=== PATIENT | male | born 1960 | race African-American/Black ===

== ENCOUNTER 2016-07-23 12:41 | Inpatient (IN) | payer OTHER ==
[2016-07-23 12:54] VITALS: BMI 22.4
--- NOTE | 2016-07-23 15:35 | HP ---
CIWA Score - CIWA Score Nausea/Vomitin Muscle Tremors: 3 Anxiety: 3 Agitation: 3 Paroxysmal Sweats: 2 Orientation: 0-Oriented Tacttile Disturbances: 2-Mild Itch/Numbness/Burn Auditory Disturbances: 2-Mild Harshness/Frighten Visual Disturbances: 2-Mild Sensitivity Headache: 2-Mild CIWA-Ar Total Score: 22 Admission ROS BHS - HPI Chief Complaint: i need help to stop drinking alcohol and cocaine Allergies/Adverse Reactions: Allergies Allergy/AdvReac Type Severity Reaction Status Date / Time No Known Allergies Allergy Verified 07/23/16 15:24 History of Present Illness: this 56 years old male with alcohol and ccocaine dependence,withdrawal symptom, last detox 2011 [facility] syncope alcohol related htn nicotine dependence longest period of sobriety 1 year positive ppd Exam Limitations: No Limitations - Ebola screening Have you traveled outside of the country in the last 21 days: No Have you had contact with anyone from an Ebola affected area: No Have you been sick,other than usual withdrawal symptoms: No - Review of Systems Constitutional: Loss of Appetite, Malaise, Night Sweats, Changes in sleep, Weakness, Unintentional Wgt. Loss EENT: reports: Nose Congestion Respiratory: reports: No Symptoms reported Cardiac: reports: Palpitations GI: reports: Diarrhea, Nausea, Vomiting, Abdominal cramping : reports: No Symptoms Reported Musculoskeletal: reports: Back Pain, Muscle Pain Neuro: reports: Headache, Tremors Endocrine: reports: No Symptoms Reported Hematology: reports: No Symptoms Reported Psychiatric: reports: No Sypmtoms Reported Patient History - Patient Medical History Hx Anemia: No Hx Asthma: No Hx Chronic Obstructive Pulmonary Disease (COPD): No Hx Cancer: No Hx Cardiac Disorders: No Hx Hypertension: Yes (on meds.) Hx Hypercholesterolemia: No Hx Pacemaker: No HX Cerebrovascular Accident: No Hx Seizures: No Hx Dementia: No Hx Diabetes: No Hx Gastrointestinal Disorders: No Hx Liver Disease: No Hx Genitourinary Disorders: No Hx Sexually Transmitted Disorders: No Hx Renal Disease (ESRD): No Hx Thyroid Disease: No Hx Human Immunodeficiency Virus (HIV): No (06/28) Hx Hepatitis C: No Hx Depression: No Hx Suicide Attempt: No Hx Bipolar Disorder: No Hx Schizophrenia: No Other Medical History: no suicidal,no homicidal - Patient Surgical History Past Surgical History: Yes Hx Abdominal Surgery: Yes (exploratory sx 1988) - PPD History Previous Implant?: Yes Documented Results: Positive w/o proof Implanted On Prior [facility] Admission?: No PPD to be Administered?: No - Smoking Cessation Smoking history: Current every day smoker Have you smoked in the past 12 months: Yes Aproximately how many cigarettes per day: 20 Hx Chewing Tobacco Use: No Initiated information on smoking cessation: Yes 'Breaking Loose' booklet given: 07/23/16 - Substance & Tx. History Hx Alcohol Use: Yes Hx Substance Use: Yes Substance Use Type: Alcohol, Cocaine Hx Substance Use Treatment: Yes (2011 [facility]) - Substances Abused Alcohol Route: Oral Frequency: Daily Amount used: 2 qts vodka Age of first use: 13 Date of Last Use: 07/22/16 Cocaine Route: Inhalation Frequency: Daily Amount used: 1-2 grams Age of first use: 16 Date of Last Use: 07/22/16 Family Disease History - Family Disease History Family Disease History: Other: Father (alcohol,) Admission Physical Exam S - Vital Signs Vital Signs: Vital Signs - 24 hr 07/23/16 12:52 Temperature 97.2 F L Pulse Rate 80 Respiratory 18 Rate Blood Pressure 153/85 - Physical General Appearance: Yes: Moderate Distress, Tremorous, Irritable, Sweating, Anxious HEENTM: Yes: Normal ENT Inspection, GERRY, Pharynx Normal Respiratory: Yes: Lungs Clear, Normal Breath Sounds, No Respiratory Distress Neck: Yes: Within Normal Limits, Supple, Trachea in good position Breast: Yes: Within Normal Limits Cardiology: Yes: Within Normal Limits, Regular Rhythm, Regular Rate, S1, S2 Abdominal: Yes: Within Normal Limits, Normal Bowel Sounds, Non Tender, Flat, Soft Genitourinary: Yes: Within Normal Limits Back: Yes: Muscle Spasm Musculoskeletal: Yes: Within Normal Limits, full range of Motion, Back pain Extremities: Yes: Within Normal Limits, Normal Range of Motion, Tremors Neurological: Yes: medical billing service II-XII NML intact, Fully Oriented, Alert, Motor Strength 5/5 Integumentary: Yes: Dry Lymphatic: Yes: Within Normal Limits - Diagnostic (1) Alcohol dependence with uncomplicated withdrawal Current Visit: Yes Status: Acute (2) Cocaine dependence Current Visit: Yes Status: Acute (3) Syncope Current Visit: Yes Status: Acute (4) Hypertension Current Visit: Yes Status: Acute (5) Positive PPD, treated Current Visit: Yes Status: Acute (6) Weight loss Current Visit: Yes Status: Acute (7) Nicotine dependence Current Visit: Yes Status: Acute Cleared for Admission S - Detox or Rehab [facility] Level of Care: Medically Managed Detox Regimen/Protocol: Librium [facility] Breath Alcohol Content Breath Alcohol Content: 0 Urine Drug Screen - Results Drug Screen Negative: No Urine Drug Screen Results: USHA-Cocaine
[2016-07-23] MEDS ORDERED: MAGNESIUM CITRATE 300 ML BOTTLE PO PRN (15:42)
[2016-07-23] MEDS ORDERED: MENTHOL/PHENOL 1 EACH UD MM PRN (15:42)
[2016-07-23] MEDS ORDERED: MAG HYDROX/AL HYDROX/SIMETH 30 ML UNIT-DOSE CUP PO PRN (15:42)
[2016-07-23] MEDS ORDERED: MAGNESIUM HYDROX 2400MG/30ML ORAL SUSPENSION 30 ML CUP PO PRN (15:42)
[2016-07-23] MEDS ORDERED: P-EPHED 60MG/TRIPROLIDI 2.5MG TABLET PO PRN (15:42)
[2016-07-23] MEDS ORDERED: diphenhydrAMINE HCL 50 MG CAPSULE PO PRN (15:42)
[2016-07-23] MEDS ORDERED: chlordiazePOXIDE HCL 25 MG CAPSULE PO PRN (15:42)
[2016-07-23] MEDS ORDERED: ACETAMINOPHEN 325 MG TABLET (FP) PO PRN (15:42)
[2016-07-23] MEDS ORDERED: LOPERAMIDE HCL 2 MG CAPSULE PO PRN (15:42)
[2016-07-23] MEDS ORDERED: guaiFENesin/D-METHORPHAN HB 10 ML UNIT-DOSE CUPS PO PRN (15:42)
[2016-07-23] MEDS ORDERED: IBUPROFEN 400 MG TABLET (FP) PO PRN (15:42)
[2016-07-23] MEDS ORDERED: hydrOXYzine PAMOATE 50 MG CAPSULE (FP) PO PRN (15:42)
[2016-07-23] MEDS ORDERED: chlordiazePOXIDE HCL 25 MG CAPSULE PO ONE (17:00)
[2016-07-23] MEDS: HYDROCHLOROTHIAZIDE 12.5 MG CAPSULE (FP) PO SCH (17:48)
[2016-07-23] MEDS: chlordiazePOXIDE HCL 25 MG CAPSULE PO SCH ×2 (17:48→23:18)
[2016-07-23] MEDS: NICOTINE 21 MG/24 HOURS TOPICAL PATCH TD SCH (18:24)
[2016-07-23 18:48] LABS: HIV 1 & 2 AB NEGATIVE; HIV 1 AGp24 NEGATIVE
[2016-07-23] MEDS: THIAMINE HCL 100 MG TABLET (FP) PO SCH (22:32)
[2016-07-23 23:05] LABS: URINE APPEARANCE CLEAR; URINE BILIRUBIN NEGATIVE (NEGATIVE); URINE BLOOD NEGATIVE (NEGATIVE); URINE COLOR YELLOW; URINE GLUCOSE (UA) NEGATIVE (NEGATIVE); URINE KETONE NEGATIVE (NEGATIVE); URINE LEUK ESTERASE NEGATIVE (NEGATIVE); URINE NITRITE NEGATIVE (NEGATIVE); URINE PROTEIN NEGATIVE (NEGATIVE); URINE UROBILINOGEN NEGATIVE E.U./dl (0.2-1.0)
[2016-07-24] MEDS: chlordiazePOXIDE HCL 25 MG CAPSULE PO SCH ×4 (05:21→23:02)
--- NOTE | 2016-07-24 09:34 | PN ---
S CIWA - CIWA Score Nausea/Vomitin Muscle Tremors: 3 Anxiety: 3 Agitation: 3 Paroxysmal Sweats: 1-Minimal Palms Moist Orientation: 0-Oriented Tacttile Disturbances: 1-Very Mild Itch/Numbness Auditory Disturbances: 1-Very Mild Visual Disturbances: 1-Very Mild Sensitivity Headache: 2-Mild CIWA-Ar Total Score: 18 BHS Progress Note (SOAP) Subjective: ALERT,IRRITABLE,ANXIOUS,INTERRUPTED SLEEP,TREMOR Objective: 07/24/16 09:30 Vital Signs Temperature 97.2 F L 07/24/16 06:24 Pulse Rate 64 07/24/16 06:24 Respiratory Rate 16 07/24/16 06:24 Blood Pressure 132/85 07/24/16 06:24 O2 Sat by Pulse Oximetry (%) EKG NSR,INVERTED T IN 2,3,AVF,LVH NO CHEST PAIN,NO SOB,NO DIZZINESS Laboratory Last Values Urine Color Yellow 07/23/16 21:39 Urine Appearance Clear 07/23/16 21:39 Urine pH 5.0 (5.0-8.0) 07/23/16 21:39 Ur Specific [place] 1.026 (1.001-1.035) 07/23/16 21:39 Urine Protein Negative (NEGATIVE) 07/23/16 21:39 Urine Glucose (UA) Negative (NEGATIVE) 07/23/16 21:39 Urine Ketones Negative (NEGATIVE) 07/23/16 21:39 Urine Blood Negative (NEGATIVE) 07/23/16 21:39 Urine Nitrite Negative (NEGATIVE) 07/23/16 21:39 Urine Bilirubin Negative (NEGATIVE) 07/23/16 21:39 Urine Urobilinogen Negative E.U./dl (0.2-1.0) 07/23/16 21:39 Ur Leukocyte Esterase Negative (NEGATIVE) 07/23/16 21:39 HIV 1&2 Antibody Screen Negative 07/23/16 15:00 HIV P24 Antigen Negative 07/23/16 15:00 LABS PENDING 07/24/16 09:33 07/24/16 09:33 Assessment: 07/24/16 09:32 07/24/16 09:33 07/24/16 09:33 WITHDRAWAL SYMPTOM 07/24/16 09:34 Plan: CONTINUE DETOX
[2016-07-24 10:08] LABS: MCH 28.5 pg (25.7-33.7); MCHC 32.9 g/dl (32.0-35.9); MEAN CELL VOLUME 86.7 fl (80-96); MEAN PLT VOLUME 10.2 fl (7.5-11.1); PLATELET COUNT 178 K/MM3 (134-434); RDW 14.8 % (11.9-15.9); WHITE BLOOD COUNT 9.7 K/mm3 (4.0-10.0)
[2016-07-24] MEDS: PRENATAL VITAMINS W/ FOLIC ACID TABLET (FP) PO SCH (10:12)
[2016-07-24] MEDS: HYDROCHLOROTHIAZIDE 12.5 MG CAPSULE (FP) PO SCH (10:12)
[2016-07-24] MEDS: NICOTINE 21 MG/24 HOURS TOPICAL PATCH TD SCH (10:13)
[2016-07-24] MEDS: NICOTINE POLACRILEX 2 MG GUM BC PRN (10:15)
[2016-07-24 10:37] LABS: ALBUMIN 3.8 g/dl (3.4-5.0); ALK PHOS 113 U/L (45-117); ANION GAP 9 (8-16); BILIRUBIN,TOTAL 0.3 mg/dL (0.2-1.0); CALCIUM 9.1 mg/dL (8.5-10.1); CO2 27 mmol/L (21-32); COCKROFT - GAULT 84.18; CREATININE 1.1 mg/dL (0.7-1.3); GLUCOSE,RANDOM 85 mg/dL (74-106); SGOT/AST 22 U/L (15-37); SGPT/ALT 27 U/L (12-78); TOT PROT 6.9 g/dl (6.4-8.2)
[2016-07-24] MEDS: THIAMINE HCL 100 MG TABLET (FP) PO SCH (23:02)
[2016-07-25] MEDS: chlordiazePOXIDE HCL 25 MG CAPSULE PO SCH ×2 (05:33→10:20)
--- NOTE | 2016-07-25 08:47 | PN ---
[facility] CIWA - CIWA Score Nausea/Vomitin Muscle Tremors: 3 Anxiety: 3 Agitation: 2 Paroxysmal Sweats: 1-Minimal Palms Moist Orientation: 0-Oriented Tacttile Disturbances: 1-Very Mild Itch/Numbness Auditory Disturbances: 1-Very Mild Visual Disturbances: 1-Very Mild Sensitivity Headache: 2-Mild CIWA-Ar Total Score: 17 BHS Progress Note (SOAP) Subjective: alert,irritable,anxious,interrupted sleep,pain in the body Objective: 07/25/16 08:46 Vital Signs Temperature 97.2 F L 07/25/16 06:31 Pulse Rate 66 07/25/16 06:31 Respiratory Rate 16 07/25/16 06:31 Blood Pressure 132/89 07/25/16 06:31 O2 Sat by Pulse Oximetry (%) Laboratory Last Values WBC 9.7 K/mm3 (4.0-10.0) 07/24/16 06:20 RBC 4.34 M/mm3 (4.00-5.60) 07/24/16 06:20 Hgb 12.4 GM/dL (11.7-16.9) 07/24/16 06:20 Hct 37.6 % (35.4-49) 07/24/16 06:20 MCV 86.7 fl (80-96) 07/24/16 06:20 MCHC 32.9 g/dl (32.0-35.9) 07/24/16 06:20 RDW 14.8 % (11.9-15.9) 07/24/16 06:20 Plt Count 178 K/MM3 (134-434) 07/24/16 06:20 MPV 10.2 fl (7.5-11.1) 07/24/16 06:20 Sodium 146 mmol/L (136-145) H 07/24/16 06:20 Potassium 3.9 mmol/L (3.5-5.1) 07/24/16 06:20 Chloride 110 mmol/L (98-107) H 07/24/16 06:20 Carbon Dioxide 27 mmol/L (21-32) 07/24/16 06:20 Anion Gap 9 (8-16) 07/24/16 06:20 BUN 15 mg/dL (7-18) 07/24/16 06:20 Creatinine 1.1 mg/dL (0.7-1.3) 07/24/16 06:20 Creat Clearance w eGFR > 60 (>60) 07/24/16 06:20 Random Glucose 85 mg/dL (74-106) 07/24/16 06:20 Calcium 9.1 mg/dL (8.5-10.1) 07/24/16 06:20 Total Bilirubin 0.3 mg/dL (0.2-1.0) 07/24/16 06:20 AST 22 U/L (15-37) 07/24/16 06:20 ALT 27 U/L (12-78) 07/24/16 06:20 Alkaline Phosphatase 113 U/L (45-117) 07/24/16 06:20 Total Protein 6.9 g/dl (6.4-8.2) 07/24/16 06:20 Albumin 3.8 g/dl (3.4-5.0) 07/24/16 06:20 Urine Color Yellow 07/23/16 21:39 Urine Appearance Clear 07/23/16 21:39 Urine pH 5.0 (5.0-8.0) 07/23/16 21:39 Ur Specific [place] 1.026 (1.001-1.035) 07/23/16 21:39 Urine Protein Negative (NEGATIVE) 07/23/16 21:39 Urine Glucose (UA) Negative (NEGATIVE) 07/23/16 21:39 Urine Ketones Negative (NEGATIVE) 07/23/16 21:39 Urine Blood Negative (NEGATIVE) 07/23/16 21:39 Urine Nitrite Negative (NEGATIVE) 07/23/16 21:39 Urine Bilirubin Negative (NEGATIVE) 07/23/16 21:39 Urine Urobilinogen Negative E.U./dl (0.2-1.0) 07/23/16 21:39 Ur Leukocyte Esterase Negative (NEGATIVE) 07/23/16 21:39 RPR Titer Nonreactive (NONREACTIVE) 07/24/16 06:20 HIV 1&2 Antibody Screen Negative 07/23/16 15:00 HIV P24 Antigen Negative 07/23/16 15:00 Assessment: 07/25/16 08:46 withdrawal symptom Plan: continue detox
[2016-07-25] MEDS: PRENATAL VITAMINS W/ FOLIC ACID TABLET (FP) PO SCH (10:20)
[2016-07-25] MEDS: HYDROCHLOROTHIAZIDE 12.5 MG CAPSULE (FP) PO SCH (10:20)
[2016-07-25] MEDS: NICOTINE POLACRILEX 2 MG GUM BC PRN (10:20)
[2016-07-25] MEDS: NICOTINE 21 MG/24 HOURS TOPICAL PATCH TD SCH (10:21)
--- NOTE | 2016-07-25 11:50 | EKG ---
Test Reason : Blood Pressure : / mmHG Vent. Rate : 080 BPM Atrial Rate : 080 BPM P-R Int : 136 ms QRS Dur : 096 ms QT Int : 390 ms P-R-T Axes : 061 049 -51 degrees QTc Int : 449 ms NORMAL SINUS RHYTHM POSSIBLE LEFT ATRIAL ENLARGEMENT LEFT VENTRICULAR HYPERTROPHY CANNOT RULE OUT SEPTAL INFARCT , AGE UNDETERMINED T WAVE ABNORMALITY, CONSIDER INFERIOR ISCHEMIA ABNORMAL ECG NO PREVIOUS ECGS AVAILABLE Confirmed by MELCHOR CARBAJAL, MARGARITA ([id number]) on 07/25/2016 11:49:43 AM Referred By: Confirmed By:MARGARITA ROCHE MD
[2016-07-25] MEDS: chlordiazePOXIDE 5 MG CAPSULE PO SCH ×2 (17:24→22:09)
[2016-07-25] MEDS: THIAMINE HCL 100 MG TABLET (FP) PO SCH (22:09)
[2016-07-26] MEDS: chlordiazePOXIDE 5 MG CAPSULE PO SCH (05:28)
[2016-07-26 05:59] VITALS: BP 139/83; PULSE 66; TEMP 98.2
[2016-07-26] MEDS ORDERED: chlordiazePOXIDE HCL 10 MG CAPSULE PO SCH (17:00)
== END 2016-07-26 09:18 | disposition home or self-care (01) | DRG 774 ==
LOC: YASAS 12:41 → EDBD 12:41 → Y6N 16:13
PROVIDERS: ADMIT Internal Medicine Addiction Medicine; ATTEND Internal Medicine Addiction Medicine
PROC: HZ2ZZZZ Detoxification Services for Substance Abuse Treatment (ICD-10-PCS; principal; 2016-07-26)
DX: F10.230 Alcohol dependence with withdrawal, uncomplicated (principal); F14.20 Cocaine dependence, uncomplicated; F17.210 Nicotine dependence, cigarettes, uncomplicated; I10 Essential (primary) hypertension; R76.11 Nonspecific reaction to tuberculin skin test without active tuberculosis; R63.4 Abnormal weight loss; Z68.22 Body mass index [BMI] 22.0-22.9, adult
CPT/HCPCS: 36415; 71020-TC; 80053; 81003; 85027; 86593; 87389; 93005; 93010

== ENCOUNTER 2017-03-03 15:03 | Inpatient (IN) | payer OTHER ==
[2017-03-03 17:00] VITALS: BMI 23.1
--- NOTE | 2017-03-03 18:33 | HP ---
CIWA Score - CIWA Score Nausea/Vomitin-Mild Nausea/No Vomiting Muscle Tremors: 4-Moderate,w/Arms Extend Anxiety: 4-Mod. Anxious/Guarded Agitation: 4-Moderately Restless Paroxysmal Sweats: 1-Minimal Palms Moist Orientation: 0-Oriented Tacttile Disturbances: 0-None Auditory Disturbances: 0-None Visual Disturbances: 0-None Headache: 0-None Present CIWA-Ar Total Score: 14 Admission ROS BHS - HPI Chief Complaint: withdrawal sx Allergies/Adverse Reactions: Allergies Allergy/AdvReac Type Severity Reaction Status Date / Time No Known Allergies Allergy Verified 03/03/17 17:02 History of Present Illness: 56 years old male with long history of alcohol cocaine nicotine dependence has hypertension positive ppd weight loss and depression is admitted to detox Exam Limitations: No Limitations - Ebola screening Have you traveled outside of the country in the last 21 days: No Have you had contact with anyone from an Ebola affected area: No Have you been sick,other than usual withdrawal symptoms: No Do you have a fever: No - Review of Systems Constitutional: Loss of Appetite, Changes in sleep, Unintentional Wgt. Loss EENT: reports: No Symptoms Reported Respiratory: reports: No Symptoms reported Cardiac: reports: No Symptoms Reported GI: reports: Nausea, Poor Appetite, Poor Fluid Intake, Abdominal cramping : reports: No Symptoms Reported Musculoskeletal: reports: No Symptoms Reported Integumentary: reports: No Symptoms Reported Neuro: reports: Tremors Endocrine: reports: No Symptoms Reported Hematology: reports: No Symptoms Reported Psychiatric: reports: Judgement Intact, Orientated x3, Anxious, Depressed Other Systems: Reviewed and Negative Patient History - Patient Medical History Hx Anemia: No Hx Asthma: No Hx Chronic Obstructive Pulmonary Disease (COPD): Yes Hx Cancer: No Hx Cardiac Disorders: No Hx Congestive Heart Failure: No Hx Hypertension: Yes (on meds.) Hx Hypercholesterolemia: No Hx Pacemaker: No HX Cerebrovascular Accident: No Hx Seizures: No Hx Dementia: No Hx Diabetes: No Hx Gastrointestinal Disorders: No Hx Liver Disease: No Hx Genitourinary Disorders: No Hx Sexually Transmitted Disorders: No Hx Renal Disease (ESRD): No Hx Thyroid Disease: No Hx Human Immunodeficiency Virus (HIV): No (06/28) Hx Hepatitis C: No Hx Depression: Yes Hx Suicide Attempt: No Hx Bipolar Disorder: No Hx Schizophrenia: No - Patient Surgical History Past Surgical History: Yes Hx Neurologic Surgery: No Hx Cataract Extraction: No Hx Cardiac Surgery: No Hx Lung Surgery: No Hx Breast Surgery: No Hx Breast Biopsy: No Hx Abdominal Surgery: Yes (exploratory sx 1988) Hx Appendectomy: No Hx Cholecystectomy: No Hx Genitourinary Surgery: No Hx Orthopedic Surgery: No Anesthesia Reaction: No - PPD History Previous Implant?: Yes Documented Results: Positive w/proof Implanted On Prior [facility] Admission?: No PPD to be Administered?: No - Smoking Cessation Smoking history: Current every day smoker Have you smoked in the past 12 months: Yes Aproximately how many cigarettes per day: 20 Cigars Per Day: 0 Hx Chewing Tobacco Use: No Initiated information on smoking cessation: Yes 'Breaking Loose' booklet given: 03/03/17 - Substance & Tx. History Hx Alcohol Use: Yes Hx Substance Use: Yes Substance Use Type: Alcohol, Cocaine Hx Substance Use Treatment: Yes (07/2016 [facility] - Substances Abused Alcohol Route: Oral Frequency: Daily Amount used: LIQUOR- 1 QUART, BEER- 2 SIX PACK Age of first use: 15 Date of Last Use: 03/02/17 Cocaine Route: Inhalation Frequency: Daily Amount used: 3 mg Age of first use: 15 Date of Last Use: 03/02/17 Family Disease History - Family Disease History Family Disease History: Heart Disease: Mother, Brother, Other: Father (alcohol, ), Sister (no sister) Admission Physical Exam BHS - Vital Signs Vital Signs: Vital Signs - 24 hr 03/03/17 16:58 Temperature 97.9 F Pulse Rate 80 Respiratory 18 Rate Blood Pressure 130/93 - Physical General Appearance: Yes: Appropriately Dressed, Mild Distress, Thin, Tremorous, Irritable, Sweating, Anxious HEENTM: Yes: Hearing grossly Normal, Normal ENT Inspection, Normocephalic, Normal Voice Respiratory: Yes: Chest Non-Tender, No Respiratory Distress, No Accessory Muscle Use, Hyperresonant Neck: Yes: Supple, Trachea in good position Breast: Yes: Breasts Symetrical Cardiology: Yes: Regular Rhythm, Regular Rate, S1, S2 Abdominal: Yes: Normal Bowel Sounds, Non Tender, Soft Genitourinary: Yes: Within Normal Limits Back: Yes: Normal Inspection Musculoskeletal: Yes: full range of Motion, Gait Steady Extremities: Yes: Normal Inspection, Normal Range of Motion, Non-Tender, Tremors Neurological: Yes: Fully Oriented, Alert, Motor Strength 5/5, Normal Response, Depressed Affect Integumentary: Yes: Warm Lymphatic: Yes: Within Normal Limits - Diagnostic (1) Cocaine dependence, uncomplicated Current Visit: Yes Status: Chronic (2) Alcohol dependence with uncomplicated withdrawal Current Visit: Yes Status: Acute (3) Hypertension Current Visit: Yes Status: Acute Qualifiers: Hypertension type: essential hypertension Qualified Code(s): I10 - Essential (primary) hypertension (4) Nicotine dependence Current Visit: Yes Status: Acute Qualifiers: Nicotine product type: cigarettes Substance use status: in withdrawal Qualified Code(s): F17.213 - Nicotine dependence, cigarettes, with withdrawal (5) Positive PPD, treated Current Visit: Yes Status: Resolved (6) Weight loss Current Visit: Yes Status: Acute Cleared for Admission S - Detox or Rehab [facility] Level of Care: Medically Managed Detox Regimen/Protocol: Librium S Breath Alcohol Content Breath Alcohol Content: 0 Urine Drug Screen - Results Drug Screen Negative: No Urine Drug Screen Results: USHA-Cocaine
[2017-03-03] MEDS ORDERED: guaiFENesin/D-METHORPHAN HB 10 ML UNIT-DOSE CUPS PO PRN (18:37)
[2017-03-03] MEDS ORDERED: ACETAMINOPHEN 325 MG TABLET (FP) PO PRN (18:37)
[2017-03-03] MEDS ORDERED: IBUPROFEN 400 MG TABLET (FP) PO PRN (18:37)
[2017-03-03] MEDS ORDERED: LOPERAMIDE HCL 2 MG CAPSULE PO PRN (18:37)
[2017-03-03] MEDS ORDERED: P-EPHED 60MG/TRIPROLIDI 2.5MG TABLET PO PRN (18:37)
[2017-03-03] MEDS ORDERED: MAG HYDROX/AL HYDROX/SIMETH 30 ML UNIT-DOSE CUP PO PRN (18:37)
[2017-03-03] MEDS ORDERED: MAGNESIUM CITRATE 300 ML BOTTLE PO PRN (18:37)
[2017-03-03] MEDS ORDERED: NICOTINE POLACRILEX 4 MG GUM BC PRN (18:37)
[2017-03-03] MEDS ORDERED: MENTHOL/PHENOL 1 EACH UD MM PRN (18:37)
[2017-03-03] MEDS ORDERED: MAGNESIUM HYDROX 2400MG/30ML ORAL SUSPENSION 30 ML CUP PO PRN (18:37)
[2017-03-03] MEDS ORDERED: chlordiazePOXIDE HCL 25 MG CAPSULE PO PRN (18:37)
[2017-03-03] MEDS ORDERED: ALBUTEROL SO4 18 GM HFA INHALER IH PRN (18:38)
[2017-03-03] MEDS: THIAMINE HCL 100 MG TABLET (FP) PO SCH (22:05)
[2017-03-03] MEDS: chlordiazePOXIDE HCL 25 MG CAPSULE PO SCH (22:05)
[2017-03-04 01:31] LABS: URINE APPEARANCE SLCLOUDY; URINE BILIRUBIN NEGATIVE (NEGATIVE); URINE BLOOD NEGATIVE (NEGATIVE); URINE COLOR AMBER; URINE GLUCOSE (UA) NEGATIVE (NEGATIVE); URINE KETONE NEGATIVE (NEGATIVE); URINE NITRITE NEGATIVE (NEGATIVE)
[2017-03-04 01:32] LABS: URINE PROTEIN 1+ (NEGATIVE)
[2017-03-04 01:47] LABS: URINE MUCUS FEW; URINE RBC 18 /hpf (0-3); URINE WBC 1 /hpf (3-5)
[2017-03-04] MEDS: chlordiazePOXIDE HCL 25 MG CAPSULE PO SCH ×4 (06:04→22:06)
[2017-03-04 09:46] LABS: MEAN CELL VOLUME 87.6 fl (80-96); MEAN PLT VOLUME 9.7 fl (7.5-11.1); PLATELET COUNT 190 K/MM3 (134-434); WHITE BLOOD COUNT 10.3 K/mm3 (4.0-10.0)
[2017-03-04 10:20] LABS: URINE LEUK ESTERASE Negative (NEGATIVE)
[2017-03-04 10:22] LABS: ALBUMIN 3.4 g/dl (3.4-5.0); ALK PHOS 109 U/L (45-117); ANION GAP 5 (8-16); BILIRUBIN,TOTAL 0.2 mg/dL (0.2-1.0); CALCIUM 8.9 mg/dL (8.5-10.1); CO2 34 mmol/L (21-32); CREATININE 1.7 mg/dL (0.7-1.3); GLUCOSE,RANDOM 103 mg/dL (74-106); SGOT/AST 18 U/L (15-37); SGPT/ALT 25 U/L (12-78); TOT PROT 6.1 g/dl (6.4-8.2)
[2017-03-04] MEDS: ASPIRIN 81 MG CHEWABLE TABLETS PO SCH (10:33)
[2017-03-04] MEDS: NICOTINE 21 MG/24 HOURS TOPICAL PATCH TD SCH (10:33)
[2017-03-04] MEDS: PRENATAL VITAMINS W/ FOLIC ACID TABLET (FP) PO SCH (10:33)
[2017-03-04] MEDS: HYDROCHLOROTHIAZIDE 12.5 MG CAPSULE (FP) PO SCH (10:33)
[2017-03-04] MEDS: amLODIPine BESYLATE 10 MG TABLET (FP) PO SCH (10:33)
--- NOTE | 2017-03-04 11:06 | PN ---
[facility] CIWA - CIWA Score Nausea/Vomitin-No Nausea/No Vomiting Muscle Tremors: 4-Moderate,w/Arms Extend Anxiety: 4-Mod. Anxious/Guarded Agitation: 4-Moderately Restless Paroxysmal Sweats: 1-Minimal Palms Moist Orientation: 0-Oriented Tacttile Disturbances: 3-Moderate Itch/Numb/Burn Auditory Disturbances: 0-None Visual Disturbances: 0-None Headache: 0-None Present CIWA-Ar Total Score: 16 BHS Progress Note (SOAP) Subjective: SLIGHT ANXIETY,SWEATS. Objective: 03/04/17 10:53 Vital Signs Temperature 97.2 F L 03/04/17 10:26 Pulse Rate 68 03/04/17 10:26 Respiratory Rate 18 03/04/17 10:26 Blood Pressure 143/97 03/04/17 10:26 O2 Sat by Pulse Oximetry (%) Laboratory Last Values WBC 10.3 K/mm3 (4.0-10.0) H 03/04/17 07:00 RBC 4.76 M/mm3 (4.00-5.60) 03/04/17 07:00 Hgb 13.3 GM/dL (11.7-16.9) 03/04/17 07:00 Hct 41.6 % (35.4-49) 03/04/17 07:00 MCV 87.6 fl (80-96) 03/04/17 07:00 MCH 28.0 pg (25.7-33.7) 03/04/17 07:00 MCHC 32.0 g/dl (32.0-35.9) 03/04/17 07:00 RDW 14.0 % (11.9-15.9) 03/04/17 07:00 Plt Count 190 K/MM3 (134-434) 03/04/17 07:00 MPV 9.7 fl (7.5-11.1) 03/04/17 07:00 Sodium 145 mmol/L (136-145) 03/04/17 07:00 Potassium 4.1 mmol/L (3.5-5.1) 03/04/17 07:00 Chloride 106 mmol/L (98-107) 03/04/17 07:00 Carbon Dioxide 34 mmol/L (21-32) H D 03/04/17 07:00 Anion Gap 5 (8-16) L 03/04/17 07:00 BUN 17 mg/dL (7-18) 03/04/17 07:00 Creatinine 1.7 mg/dL (0.7-1.3) H D 03/04/17 07:00 Creat Clearance w eGFR 41.90 (>60) 03/04/17 07:00 Random Glucose 103 mg/dL (74-106) D 03/04/17 07:00 Calcium 8.9 mg/dL (8.5-10.1) 03/04/17 07:00 Total Bilirubin 0.2 mg/dL (0.2-1.0) D 03/04/17 07:00 AST 18 U/L (15-37) 03/04/17 07:00 ALT 25 U/L (12-78) 03/04/17 07:00 Alkaline Phosphatase 109 U/L (45-117) 03/04/17 07:00 Total Protein 6.1 g/dl (6.4-8.2) L 03/04/17 07:00 Albumin 3.4 g/dl (3.4-5.0) 03/04/17 07:00 Urine Color Amy 03/03/17 22:35 Urine Appearance Slcloudy 03/03/17 22:35 Urine pH 6.0 (5.0-8.0) 03/03/17 22:35 Ur Specific [place] 1.025 (1.001-1.035) 03/03/17 22:35 Urine Protein 1+ (NEGATIVE) H 03/03/17 22:35 Urine Glucose (UA) Negative (NEGATIVE) 03/03/17 22:35 Urine Ketones Negative (NEGATIVE) 03/03/17 22:35 Urine Blood Negative (NEGATIVE) 03/03/17 22:35 Urine Nitrite Negative (NEGATIVE) 03/03/17 22:35 Urine Bilirubin Negative (NEGATIVE) 03/03/17 22:35 Urine Urobilinogen 2.0 mg/dL (0.2-1.0) 03/03/17 22:35 Ur Leukocyte Esterase Negative (NEGATIVE) 03/03/17 22:35 Ur Epithelial Cells Rare /HPF (FEW) 03/03/17 22:35 Urine Mucus Few 03/03/17 22:35 Assessment: 03/04/17 10:54 WITHDRAWAL SX Plan: CONTINUE DETOX
--- NOTE | 2017-03-04 12:47 | EKG ---
Test Reason : Blood Pressure : / mmHG Vent. Rate : 056 BPM Atrial Rate : 056 BPM P-R Int : 148 ms QRS Dur : 104 ms QT Int : 518 ms P-R-T Axes : 069 064 -49 degrees QTc Int : 499 ms SINUS BRADYCARDIA BASELINE ARTIFACT Q WAVE IN aVL, CANNOT EXCLUDE HIGH LATERAL WALL WA OF INDETERMINATE AGE VOLTAGE CRITERIA FOR LEFT VENTRICULAR HYPERTROPHY ABNORMAL ECG WHEN COMPARED WITH ECG OF 23-JUL-2016 16:56, MINIMAL CRITERIA FOR SEPTAL INFARCT ARE NO LONGER PRESENT NONSPECIFIC T WAVE ABNORMALITY NO LONGER EVIDENT IN ANTEROLATERAL LEADS REPEAT EKG IF CLINICALLY INDICATED Confirmed by YANET FONSECA MD ([id number]) on 03/04/2017 12:47:43 PM Referred By: Confirmed By:YANET FONSECA MD
--- NOTE | 2017-03-04 12:51 | CONSULT ---
[facility] Psychiatric Consult - Data Date of interview: 03/04/17 Admission source: [facility] Identifying data: [place] [facility] [place] 56 y/o AA male seeking detox treatment on for alcohol and cocaine dependence.Patient is single, a father of two,domiciled and employed. Substance Abuse History: Discussed with patient in this session.He confirmed addictions reported in this note from [facility] : Smoking history: Current every day smoker. Have you smoked in the past 12 months: Yes. Aproximately how many cigarettes per day: 20. Cigars Per Day: 0. Hx Chewing Tobacco Use: No. Initiated information on smoking cessation: Yes. 'Breaking Loose' booklet given : 03/03/17. - Substance & Tx. History. Hx Alcohol Use: Yes. Hx Substance Use : Yes. Substance Use Type: Alcohol, Cocaine. Hx Substance Use Treatment: Yes ( 07/2016 [facility] - Substances Abused. Alcohol. Route: Oral. Frequency: Daily. Amount used: LIQUOR- 1 QUART, BEER- 2 SIX PACK. Age of first use: 15. Date of Last Use: 03/02/17. Cocaine. Route: Inhalation. Frequency: Daily. Amount used: 3 mg. Age of first use: 15. Date of Last Use: 03/02/17 Medical History: Hypertension. Psychiatric History: Distant history of psychiatric hospitalization at [facility] (1975) due to behavioral disturbances.Patient has no recall of diagnosis.No recent OPD care.Has been off psychotropic medications for years (mellaril,thorazine).Mr Billy denies history of suicide attempts. Physical/Sexual Abuse/Trauma History: Patient denies. Additional Comment: Urine Drug Screen Results: USHA-Cocaine.Noted. Mental Status Exam - Mental Status Exam Alert and Oriented to: Time, Place, Person Cognitive Function: Good Patient Appearance: Well Groomed Mood: Hopeful, Euthymic Affect: Appropriate, Normal Range Patient Behavior: Appropriate, Cooperative Speech Pattern: Clear Voice Loudness: Normal Thought Process: Intact, Goal Oriented Thought Disorder: Not Present Hallucinations: Denies Suicidal Ideation: Denies Homicidal Ideation: Denies Insight/Judgement: Poor Sleep: Poorly, Difficulty falling asleep Appetite: Good Muscle strength/Tone: Normal Gait/Station: Normal Psychiatric Findings - Problem List ([place] 1, 2,3) (1) Alcohol dependence with uncomplicated withdrawal Current Visit: Yes Status: Acute (2) Cocaine dependence, uncomplicated Current Visit: Yes Status: Acute (3) Nicotine dependence Current Visit: Yes Status: Acute Qualifiers: Nicotine product type: cigarettes Substance use status: in withdrawal Qualified Code(s): F17.213 - Nicotine dependence, cigarettes, with withdrawal (4) Insomnia Current Visit: Yes Status: Acute - Initial Treatment Plan Initial Treatment Plan: Psychoeducation.Detoxification.Ambien 10 mg po hs prn.Risk of parasomnias : discussed with patient.Agrees with this careplan.Observation.
[2017-03-04] MEDS ORDERED: ZOLPIDEM TARTRATE 10 MG TABLET (PARK CARE ONLY) PO PRN (22:00)
[2017-03-04] MEDS: THIAMINE HCL 100 MG TABLET (FP) PO SCH (22:06)
[2017-03-05] MEDS: chlordiazePOXIDE HCL 25 MG CAPSULE PO SCH ×3 (05:36→18:34)
--- NOTE | 2017-03-05 09:37 | EKG ---
Test Reason : Blood Pressure : / mmHG Vent. Rate : 061 BPM Atrial Rate : 061 BPM P-R Int : 146 ms QRS Dur : 110 ms QT Int : 474 ms P-R-T Axes : 057 054 -49 degrees QTc Int : 477 ms NORMAL SINUS RHYTHM VOLTAGE CRITERIA FOR LEFT VENTRICULAR HYPERTROPHY T WAVE ABNORMALITY, CONSIDER INFERIOR ISCHEMIA ABNORMAL ECG WHEN COMPARED WITH ECG OF 03-MAR-2017 20:49, NO SIGNIFICANT CHANGE WAS FOUND Confirmed by KHARI MOCK MD ([id number]) on 03/05/2017 9:37:36 AM Referred By: Confirmed By:KHARI MOCK MD
[2017-03-05] MEDS: PRENATAL VITAMINS W/ FOLIC ACID TABLET (FP) PO SCH (10:14)
[2017-03-05] MEDS: ASPIRIN 81 MG CHEWABLE TABLETS PO SCH (10:14)
[2017-03-05] MEDS: amLODIPine BESYLATE 10 MG TABLET (FP) PO SCH (10:14)
[2017-03-05] MEDS: HYDROCHLOROTHIAZIDE 12.5 MG CAPSULE (FP) PO SCH (10:14)
[2017-03-05] MEDS: NICOTINE 21 MG/24 HOURS TOPICAL PATCH TD SCH (10:15)
--- NOTE | 2017-03-05 10:39 | PN ---
[facility] CIWA - CIWA Score Nausea/Vomitin-No Nausea/No Vomiting Muscle Tremors: 4-Moderate,w/Arms Extend Anxiety: 4-Mod. Anxious/Guarded Agitation: 4-Moderately Restless Paroxysmal Sweats: 1-Minimal Palms Moist Orientation: 0-Oriented Tacttile Disturbances: 3-Moderate Itch/Numb/Burn Auditory Disturbances: 0-None Visual Disturbances: 0-None Headache: 0-None Present CIWA-Ar Total Score: 16 S Progress Note (SOAP) Subjective: ANXIETY, SWEATS,FATIGUE AND "..SLIGHTLY GROGGY" Objective: 03/05/17 10:37 Vital Signs Temperature 96.1 F L 03/05/17 09:51 Pulse Rate 73 03/05/17 09:51 Respiratory Rate 16 03/05/17 09:51 Blood Pressure 120/93 03/05/17 09:51 O2 Sat by Pulse Oximetry (%) Laboratory Last Values WBC 10.3 K/mm3 (4.0-10.0) H 03/04/17 07:00 RBC 4.76 M/mm3 (4.00-5.60) 03/04/17 07:00 Hgb 13.3 GM/dL (11.7-16.9) 03/04/17 07:00 Hct 41.6 % (35.4-49) 03/04/17 07:00 MCV 87.6 fl (80-96) 03/04/17 07:00 MCH 28.0 pg (25.7-33.7) 03/04/17 07:00 MCHC 32.0 g/dl (32.0-35.9) 03/04/17 07:00 RDW 14.0 % (11.9-15.9) 03/04/17 07:00 Plt Count 190 K/MM3 (134-434) 03/04/17 07:00 MPV 9.7 fl (7.5-11.1) 03/04/17 07:00 Sodium 145 mmol/L (136-145) 03/04/17 07:00 Potassium 4.1 mmol/L (3.5-5.1) 03/04/17 07:00 Chloride 106 mmol/L (98-107) 03/04/17 07:00 Carbon Dioxide 34 mmol/L (21-32) H D 03/04/17 07:00 Anion Gap 5 (8-16) L 03/04/17 07:00 BUN 17 mg/dL (7-18) 03/04/17 07:00 Creatinine 1.7 mg/dL (0.7-1.3) H D 03/04/17 07:00 Creat Clearance w eGFR 41.90 (>60) 03/04/17 07:00 Random Glucose 103 mg/dL (74-106) D 03/04/17 07:00 Calcium 8.9 mg/dL (8.5-10.1) 03/04/17 07:00 Total Bilirubin 0.2 mg/dL (0.2-1.0) D 03/04/17 07:00 AST 18 U/L (15-37) 03/04/17 07:00 ALT 25 U/L (12-78) 03/04/17 07:00 Alkaline Phosphatase 109 U/L (45-117) 03/04/17 07:00 Total Protein 6.1 g/dl (6.4-8.2) L 03/04/17 07:00 Albumin 3.4 g/dl (3.4-5.0) 03/04/17 07:00 Urine Color Amy 03/03/17 22:35 Urine Appearance Slcloudy 03/03/17 22:35 Urine pH 6.0 (5.0-8.0) 03/03/17 22:35 Ur Specific [place] 1.025 (1.001-1.035) 03/03/17 22:35 Urine Protein 1+ (NEGATIVE) H 03/03/17 22:35 Urine Glucose (UA) Negative (NEGATIVE) 03/03/17 22:35 Urine Ketones Negative (NEGATIVE) 03/03/17 22:35 Urine Blood Negative (NEGATIVE) 03/03/17 22:35 Urine Nitrite Negative (NEGATIVE) 03/03/17 22:35 Urine Bilirubin Negative (NEGATIVE) 03/03/17 22:35 Urine Urobilinogen 2.0 mg/dL (0.2-1.0) 03/03/17 22:35 Ur Leukocyte Esterase Negative (NEGATIVE) 03/03/17 22:35 Ur Epithelial Cells Rare /HPF (FEW) 03/03/17 22:35 Urine Mucus Few 03/03/17 22:35 RPR Titer Nonreactive (NONREACTIVE) 03/04/17 07:00 Assessment: 03/05/17 10:38 WITHDRAWAL SX Plan: CONTINUE DETOX HOLD LIBRIUM IN NEEDED.
[2017-03-05] MEDS: THIAMINE HCL 100 MG TABLET (FP) PO SCH (22:24)
[2017-03-05] MEDS: chlordiazePOXIDE 5 MG CAPSULE PO SCH (22:24)
[2017-03-06] MEDS: chlordiazePOXIDE 5 MG CAPSULE PO SCH ×3 (05:22→18:21)
[2017-03-06] MEDS: HYDROCHLOROTHIAZIDE 12.5 MG CAPSULE (FP) PO SCH (10:10)
[2017-03-06] MEDS: amLODIPine BESYLATE 10 MG TABLET (FP) PO SCH (10:10)
[2017-03-06] MEDS: PRENATAL VITAMINS W/ FOLIC ACID TABLET (FP) PO SCH (10:10)
[2017-03-06] MEDS: ASPIRIN 81 MG CHEWABLE TABLETS PO SCH (10:10)
[2017-03-06] MEDS: NICOTINE 21 MG/24 HOURS TOPICAL PATCH TD SCH (10:11)
--- NOTE | 2017-03-06 14:54 | PN ---
[facility] Progress Note (SOAP) Subjective: Sweating, Anxious. Objective: PT. A & O X 3, OBSERVED AMBULATING ON UNIT. NO ACUTE DISTRESS. 03/06/17 14:52 Vital Signs Temperature 97.5 F L 03/06/17 08:59 Pulse Rate 66 03/06/17 08:59 Respiratory Rate 18 03/06/17 08:59 Blood Pressure 139/87 03/06/17 08:59 O2 Sat by Pulse Oximetry (%) Laboratory Tests 03/03/17 03/04/17 03/04/17 22:35 07:00 07:00 WBC 10.3 H RBC 4.76 Hgb 13.3 Hct 41.6 MCV 87.6 MCH 28.0 MCHC 32.0 RDW 14.0 Plt Count 190 MPV 9.7 Sodium 145 Potassium 4.1 Chloride 106 Carbon Dioxide 34 H D Anion Gap 5 L BUN 17 Creatinine 1.7 H D Creat Clearance w eGFR 41.90 Random Glucose 103 D Calcium 8.9 Total Bilirubin 0.2 D AST 18 ALT 25 Alkaline Phosphatase 109 Total Protein 6.1 L Albumin 3.4 Urine Color Amy Urine Appearance Slcloudy Urine pH 6.0 Ur Specific [place] 1.025 Urine Protein 1+ H Urine Glucose (UA) Negative Urine Ketones Negative Urine Blood Negative Urine Nitrite Negative Urine Bilirubin Negative Urine Urobilinogen 2.0 Ur Leukocyte Esterase Negative Ur Epithelial Cells Rare Urine Mucus Few RPR Titer 03/04/17 07:00 WBC RBC Hgb Hct MCV MCH MCHC RDW Plt Count MPV Sodium Potassium Chloride Carbon Dioxide Anion Gap BUN Creatinine Creat Clearance w eGFR Random Glucose Calcium Total Bilirubin AST ALT Alkaline Phosphatase Total Protein Albumin Urine Color Urine Appearance Urine pH Ur Specific [place] Urine Protein Urine Glucose (UA) Urine Ketones Urine Blood Urine Nitrite Urine Bilirubin Urine Urobilinogen Ur Leukocyte Esterase Ur Epithelial Cells Urine Mucus RPR Titer Nonreactive LABS NOTED. Assessment: 03/06/17 14:52 WITHDRAWAL SYMPTOMS. Plan: CONTINUE DETOX. D/C MAGNESIUM-CONTAINING MEDS. FOR ABNORMAL RENAL LAB VALUES.
[2017-03-06] MEDS: chlordiazePOXIDE HCL 10 MG CAPSULE PO SCH (22:09)
[2017-03-06] MEDS: THIAMINE HCL 100 MG TABLET (FP) PO SCH (22:09)
[2017-03-07] MEDS: chlordiazePOXIDE HCL 10 MG CAPSULE PO SCH (05:20)
[2017-03-07 06:10] VITALS: BP 143/89; PULSE 45; TEMP 98.3
--- NOTE | 2017-03-07 08:52 | DS ---
[facility] Detox Discharge Summary Admission Date: 03/03/17 Discharge Date: 03/07/17 - History Present History: Alcohol Dependence, Cocaine Dependence Additional Comments: DETOX COMPLETED. ALERT O X 3. NAD. PT REMINDED TO FOLLOW UP AT [facility] FOR MEDICAL MANAGEMENT OF COMORBID CONDITION. Pertinent Past History: HTN DEPRESSION INSOMNIA - Physical Exam Results Vital Signs: Vital Signs Temperature 98.3 F 03/07/17 06:00 Pulse Rate 45 L 03/07/17 06:00 Respiratory Rate 18 03/07/17 06:00 Blood Pressure 143/89 03/07/17 06:00 O2 Sat by Pulse Oximetry (%) Pertinent Admission Physical Exam Findings: WITHDRAWAL SX Laboratory Last Values WBC 10.3 K/mm3 (4.0-10.0) H 03/04/17 07:00 RBC 4.76 M/mm3 (4.00-5.60) 03/04/17 07:00 Hgb 13.3 GM/dL (11.7-16.9) 03/04/17 07:00 Hct 41.6 % (35.4-49) 03/04/17 07:00 MCV 87.6 fl (80-96) 03/04/17 07:00 MCH 28.0 pg (25.7-33.7) 03/04/17 07:00 MCHC 32.0 g/dl (32.0-35.9) 03/04/17 07:00 RDW 14.0 % (11.9-15.9) 03/04/17 07:00 Plt Count 190 K/MM3 (134-434) 03/04/17 07:00 MPV 9.7 fl (7.5-11.1) 03/04/17 07:00 Sodium 145 mmol/L (136-145) 03/04/17 07:00 Potassium 4.1 mmol/L (3.5-5.1) 03/04/17 07:00 Chloride 106 mmol/L (98-107) 03/04/17 07:00 Carbon Dioxide 34 mmol/L (21-32) H D 03/04/17 07:00 Anion Gap 5 (8-16) L 03/04/17 07:00 BUN 17 mg/dL (7-18) 03/04/17 07:00 Creatinine 1.7 mg/dL (0.7-1.3) H D 03/04/17 07:00 Creat Clearance w eGFR 41.90 (>60) 03/04/17 07:00 Random Glucose 103 mg/dL (74-106) D 03/04/17 07:00 Calcium 8.9 mg/dL (8.5-10.1) 03/04/17 07:00 Total Bilirubin 0.2 mg/dL (0.2-1.0) D 03/04/17 07:00 AST 18 U/L (15-37) 03/04/17 07:00 ALT 25 U/L (12-78) 03/04/17 07:00 Alkaline Phosphatase 109 U/L (45-117) 03/04/17 07:00 Total Protein 6.1 g/dl (6.4-8.2) L 03/04/17 07:00 Albumin 3.4 g/dl (3.4-5.0) 03/04/17 07:00 Urine Color Amy 03/03/17 22:35 Urine Appearance Slcloudy 03/03/17 22:35 Urine pH 6.0 (5.0-8.0) 03/03/17 22:35 Ur Specific [place] 1.025 (1.001-1.035) 03/03/17 22:35 Urine Protein 1+ (NEGATIVE) H 03/03/17 22:35 Urine Glucose (UA) Negative (NEGATIVE) 03/03/17 22:35 Urine Ketones Negative (NEGATIVE) 03/03/17 22:35 Urine Blood Negative (NEGATIVE) 03/03/17 22:35 Urine Nitrite Negative (NEGATIVE) 03/03/17 22:35 Urine Bilirubin Negative (NEGATIVE) 03/03/17 22:35 Urine Urobilinogen 2.0 mg/dL (0.2-1.0) 03/03/17 22:35 Ur Leukocyte Esterase Negative (NEGATIVE) 03/03/17 22:35 Ur Epithelial Cells Rare /HPF (FEW) 03/03/17 22:35 Urine Mucus Few 03/03/17 22:35 RPR Titer Nonreactive (NONREACTIVE) 03/04/17 07:00 - Treatment Hospital Course: Detox Protocol Followed, Detoxed Safely, Responded well, Discharged Condition Good - Medication Discharge Medications: Ambulatory Orders Amlodipine Besylate [Norvasc -] 10 mg PO DAILY #30 tablet 03/06/17 Aspirin [ASA -] 81 mg PO DAILY #30 tab.chew 03/06/17 Hydrochlorothiazide [Hctz -] 12.5 mg PO DAILY #30 tab 03/06/17 - Diagnosis (1) Alcohol dependence with uncomplicated withdrawal Current Visit: Yes Status: Acute (2) Hypertension Current Visit: Yes Status: Chronic Qualifiers: Hypertension type: essential hypertension Qualified Code(s): I10 - Essential (primary) hypertension (3) Nicotine dependence Current Visit: Yes Status: Acute Qualifiers: Nicotine product type: cigarettes Substance use status: in withdrawal Qualified Code(s): F17.213 - Nicotine dependence, cigarettes, with withdrawal (4) Weight loss Current Visit: Yes Status: Acute (5) Cocaine dependence, uncomplicated Current Visit: Yes Status: Acute - AMA Did Patient Leave Against Medical Advice: No
[2017-03-07] MEDS: PRENATAL VITAMINS W/ FOLIC ACID TABLET (FP) PO SCH (09:00)
[2017-03-07] MEDS: HYDROCHLOROTHIAZIDE 12.5 MG CAPSULE (FP) PO SCH (09:00)
[2017-03-07] MEDS: ASPIRIN 81 MG CHEWABLE TABLETS PO SCH (09:00)
[2017-03-07] MEDS: amLODIPine BESYLATE 10 MG TABLET (FP) PO SCH (09:01)
== END 2017-03-07 09:27 | disposition home or self-care (01) | DRG 774 ==
LOC: YASAS 15:03 → Y3N 17:26
PROVIDERS: ADMIT Internal Medicine; ATTEND Internal Medicine
PROC: HZ2ZZZZ Detoxification Services for Substance Abuse Treatment (ICD-10-PCS; principal; 2017-03-03)
DX: F10.230 Alcohol dependence with withdrawal, uncomplicated (principal); F14.20 Cocaine dependence, uncomplicated; F17.213 Nicotine dependence, cigarettes, with withdrawal; I10 Essential (primary) hypertension; G47.00 Insomnia, unspecified; R76.11 Nonspecific reaction to tuberculin skin test without active tuberculosis; J44.9 Chronic obstructive pulmonary disease, unspecified; Z79.82 Long term (current) use of aspirin; Z87.898 Personal history of other specified conditions
CPT/HCPCS: 36415; 80053; 81003; 81015; 85027; 86593; 93005; 93010